=== PATIENT | female | born 1945 | race Caucasian/White ===

== ENCOUNTER 2022-12-26 07:02 | Day surgery (SDC) | payer OTHER ==
[2022-12-26] MEDS ORDERED: SIMETHICONE 40 MG/0.6 ML ML ONE (07:12)
[2022-12-26] MEDS ORDERED: MIDAZOLAM HCL 5 MG/5 ML VIAL ONE (07:12)
[2022-12-26] MEDS ORDERED: MEPERIDINE 100 MG INJ. 100 MG/ML VIAL ONE (07:12)
[2022-12-26 08:25] VITALS: O2SAT 98
[2022-12-26 13:18] VITALS: BP_SYST 150; PULSE 86; RESP 18
== END 2022-12-26 11:06 | disposition home or self-care (01) ==
LOC: SDS 07:02 → SMU 07:03 → SDS 11:06
PROVIDERS: ATTEND Internal Medicine Gastroenterology
DX: D64.9 Anemia, unspecified (principal); K25.9 Gastric ulcer, unspecified as acute or chronic, without hemorrhage or perforation; K29.50 Unspecified chronic gastritis without bleeding; D13.2 Benign neoplasm of duodenum; M19.90 Unspecified osteoarthritis, unspecified site; Z86.010 Personal history of colon polyps; Z87.891 Personal history of nicotine dependence; Z79.899 Other long term (current) drug therapy
CPT/HCPCS: 43251; 43239; 99152; 87081; 36415; 88305; 88312; 88313; G0378; J2250; J2175